=== PATIENT | female | born 1955 | race Caucasian/White ===

== ENCOUNTER → 2016-09-09 | Outpatient (CLI) | payer OTHER ==
[~2016-09-09] VITALS: Ht 149.9 cm; Wt 66.7 kg
[~2016-09-09] MED LIST: ALEV220C2 PO; CALC500T49 PO; D 1010004 PO; LISI10TA2 PO; NS 1,000 ML IV SCH; PREV15CA11 PO; PROPOFOL 200 MG/20 ML VIAL As Ordered ONE; SYMB80INH INH; ZYRT10CA PO
--- NOTE | 2016-09-09 08:17 | ROOR ---
Patient Name: Gladys Cummins Procedure Date: 09/09/2016 7:57 AM Date of : 1955 Age: 61 Room: [facility] Gender: Female Note Status: Finalized Procedure: Colonoscopy to Cecum Indications: Screening for colorectal malignant neoplasm, Last colonoscopy: 2005 Providers: Luiz Moss MD Referring MD: Brynn SHUKLA MD Requesting Provider: Medicines: Monitored Anesthesia Care Complications: No immediate complications. Procedure: Pre-Anesthesia Assessment: - The heart rate, respiratory rate, oxygen saturations, blood pressure, adequacy of pulmonary ventilation, and response to care were monitored throughout the procedure. The Colonoscope was introduced through the anus and advanced to the cecum, identified by appendiceal orifice and ileocecal valve. The colonoscopy was performed without difficulty. The patient tolerated the procedure well. The quality of the bowel preparation was excellent. Findings: The perianal and digital rectal examinations were normal. Non-bleeding internal hemorrhoids were found during retroflexion. The hemorrhoids were small and Grade I (internal hemorrhoids that do not prolapse). No other significant abnormalities were identified in a careful examination of the remainder of the colon. The exam was otherwise without abnormality on direct and retroflexion views. Impression: - Non-bleeding internal hemorrhoids. - The examination was otherwise normal on direct and retroflexion views. - No specimens collected. - The exam was otherwise normal to the cecum. Recommendation: - Patient has a contact number available for emergencies. The signs and symptoms of potential delayed complications were discussed with the patient. Return to normal activities tomorrow. Written discharge instructions were provided to the patient. - High fiber diet. - Discharge patient to home. - Continue present medications. - Repeat colonoscopy in 10 years for screening purposes. - Return to referring physician. - The findings and recommendations were discussed with the patient's family. Luiz Moss MD Luiz Moss MD 09/09/2016 8:16:44 AM This report has been signed electronically. Number of Addenda: 0 Note Initiated On: 09/09/2016 7:57 AM Estimated Blood Loss: Estimated blood loss: none.
== END | disposition home or self-care (01) ==
LOC: M OPP 06:58
PROVIDERS: ATTEND Internal Medicine Gastroenterology
DX: Z12.11 Encounter for screening for malignant neoplasm of colon (principal); K64.0 First degree hemorrhoids; K44.9 Diaphragmatic hernia without obstruction or gangrene; R12 Heartburn; R06.83 Snoring; M19.90 Unspecified osteoarthritis, unspecified site; J45.909 Unspecified asthma, uncomplicated; Z79.899 Other long term (current) drug therapy; Z79.51 Long term (current) use of inhaled steroids; Z88.8 Allergy status to other drugs, medicaments and biological substances; Z88.5 Allergy status to narcotic agent

== ENCOUNTER → 2021-11-23 | Outpatient (CLI) | payer OTHER ==
[~2021-11-23] MED LIST changes: -LISI10TA2 PO; +LISI10TA24 PO; -NS 1,000 ML IV SCH; -PREV15CA11 PO; +PREV15CA24 PO; -PROPOFOL 200 MG/20 ML VIAL As Ordered ONE
== END ==
LOC: M SOG 11:30
PROVIDERS: ATTEND Physician Assistant
DX: M25.531 Pain in right wrist (principal); M19.041 Primary osteoarthritis, right hand

== ENCOUNTER → 2022-05-30 | Outpatient (CLI) | payer MEDICARE | LOC: M WUC 08:29 | PROVIDERS: ATTEND Registered Nurse | DX: J06.9 Acute upper respiratory infection, unspecified (principal) ==

== ENCOUNTER → 2022-08-13 | Outpatient (CLI) | payer MEDICARE | LOC: M SOG 07:55 | PROVIDERS: ATTEND Orthopaedic Surgery Hand Surgery | DX: M25.511 Pain in right shoulder (principal); M19.011 Primary osteoarthritis, right shoulder ==

== ENCOUNTER → 2023-07-21 | Outpatient (REF) | payer MEDICARE | LOC: M LAB REF 11:45 | PROVIDERS: ATTEND Student in an Organized Health Care Education/Training Program | DX: R30.0 Dysuria (principal) ==